=== PATIENT | male | born 1965 | race Hispanic/Latino ===

== ENCOUNTER 2017-05-08 02:47 | Observation (INO) | payer BC ==
--- NOTE | 2017-05-08 03:10 | ED PDOC ---
Arrival/HPI - General Chief Complaint: Chest Pain Time Seen by Provider: 05/08/17 02:48 Historian: Patient - History of Present Illness Narrative History of Present Illness (Text): 05/08/17 03:07 51 year old male, whose past medical history includes hypertension and prediabetes, presents to the emergency department complaining of chest pain associated with shortness of breath. Patient describes the chest pain as a burning sensation. Patient reports nausea and headache, but denies any fever, chills,vomiting, diarrhea, urinary symptoms, back pain, neck pain, headache, dizziness, or any other complaints. PMD: Dr. Germain 05/08/17 04:26 Time/Duration: Other (several days) Symptom Onset: Gradual Symptom Course: Unchanged Quality: Burning Activities at Onset: Light Context: Home Past Medical History - Provider Review Nursing Documentation Reviewed: Yes - Infectious Disease Hx of Infectious Diseases: None - Cardiac Hx Hypertension: Yes Other/Comment: Chest pain - Pulmonary Hx Respiratory Disorders: No - Neurological Hx Dizziness: Yes - HEENT Hx HEENT Disorder: No - Renal Hx Renal Disorder: No - Endocrine/Metabolic Hx Endocrine Disorders: No - Hematological/Oncological Hx Blood Disorders: No - Integumentary Hx Dermatological Disorder: No - Musculoskeletal/Rheumatological Hx Musculoskeletal Disorders: No Hx Falls: No - Gastrointestinal Hx Gastroesophageal Reflux: Yes - Genitourinary/Gynecological Hx Genitourinary Disorders: No - Psychiatric Hx Psychophysiologic Disorder: No Hx Substance Use: No - Surgical History Hx Cardiac Catheterization: Yes (4yrs ago halle) Other/Comment: Cardiac cath - Anesthesia Hx Anesthesia: Yes Hx Anesthesia Reactions: No Family/Social History - Physician Review Nursing Documentation Reviewed: Yes Family/Social History: No Known Family HX Smoking Status: Never Smoked Hx Alcohol Use: No Hx Substance Use: No Allergies/Home Meds Allergies/Adverse Reactions: Allergies No Known Allergies Allergy (Verified 08/24/15 19:32) Home Medications: Home Meds Medication Instructions Recorded Confirmed Aspirin [Adult Low Dose Aspirin EC] 81 mg PO DAILY 05/08/17 05/08/17 Cyanocobalamin/Folic AC/Vit B6 1 tab PO DAILY 05/08/17 05/08/17 [Folplex 2.2 Tablet] Yyrwe-5-Nxhf Ethyl Esters [OMEGA 3] 100 mg PO BID 05/08/17 05/08/17 Omeprazole 40 mg PO DAILY 05/08/17 05/08/17 Valsartan/Hydrochlorothiazide 1 tab PO DAILY 05/08/17 05/08/17 [Valsartan-Hctz 320-25 mg Tab] Review of Systems - Physician Review All systems were reviewed & negative as marked: Yes - Review of Systems Constitutional: absent: Fevers, Other (Chills) Respiratory: SOB Cardiovascular: Chest Pain Gastrointestinal: Nausea. absent: Diarrhea, Vomiting Musculoskeletal: absent: Back Pain, Neck Pain Neurological: Headache. absent: Dizziness Physical Exam Vital Signs Reviewed: Yes Vital Signs Temp Pulse Resp BP Pulse Ox 05/08/17 02:57 97.5 F L 78 18 130/81 100 Temperature: Afebrile Blood Pressure: Normal Pulse: Regular Respiratory Rate: Normal Appearance: Positive for: Well-Appearing, Non-Toxic, Comfortable, Other ( Morbidly obese) Pain Distress: None Mental Status: Positive for: Alert and Oriented X 3 - Systems Exam Head: Present: Atraumatic, Normocephalic Pupils: Present: PERRL Extroacular Muscles: Present: EOMI Conjunctiva: Present: Normal Mouth: Present: Moist Mucous Membranes Neck: Present: Normal Range of Motion Respiratory/Chest: Present: Clear to Auscultation, Good Air Exchange. No: Respiratory Distress, Accessory Muscle Use Cardiovascular: Present: Regular Rate and Rhythm, Normal S1, S2. No: Murmurs Abdomen: Present: Normal Bowel Sounds. No: Tenderness, Distention, Peritoneal Signs Back: Present: Normal Inspection Upper Extremity: Present: Normal Inspection. No: Cyanosis, Edema Lower Extremity: Present: Normal Inspection. No: Edema Neurological: Present: GCS=15, CN II-XII Intact, Speech Normal Skin: Present: Warm, Dry, Normal Color. No: Rashes Psychiatric: Present: Alert, Oriented x 3, Normal Insight, Normal Concentration Medical Decision Making ED Course and Treatment: 05/08/17 03:07 Impression: 51 year old male presents complaining of chest pain and sob for the past few days. Plan: -- EKG -- Labs -- Urinalysis -- Chest X-ray -- Reassess and disposition Prior Visits: Notes and results from previous visits were reviewed. Patient was last seen in the emergency department on 08/24/15 presents complaining of intermittent exertional chest pain and dyspnea on exertion for the past few months. Patient was admitted. Progress Notes: EKG shows NSR at 80 BPM with non-specific ST/T changes. Interpreted by me. 05/08/17 03:27 CXR Impression: As read by [email or web address]. 05/08/17 03:54 On re-evaluation, patient feels better and is in no acute distress. 05/08/17 04:05 All symptoms has resolved. Patient reports he took aspirin upon arrival. 05/08/17 04:[address] Germain who is aware and agrees with the plan. Dr. Germain accepts patient. 05/08/17 04:26 atypcial pain but pain <4 hours will need repeat trop. noted neg recent stress - Lab Interpretations Lab Results: 05/08/17 03:00 05/08/17 03:00 Lab Results 05/08/17 03:00: Sodium 140, Potassium 3.8, Chloride 100, Carbon Dioxide 28, Anion Gap 16, BUN 18, Creatinine 1.2, Est GFR ( Amer) > 60, Est GFR (Non- Af Amer) > 60, Random Glucose 111 H, Calcium 9.5, Magnesium 1.8, Total Bilirubin 0.5, AST 38, ALT 69 H, Alkaline Phosphatase 77, Lactate Dehydrogenase 391, Total Creatine Kinase 375 H, CK-MB (CK-2) 3.3, CK-MB (CK-2) % Cancelled, Troponin I < 0.01, NT-Pro-B Natriuret Pep 39.5, Total Protein 6.7, Albumin 3.9, Globulin 2.8, Albumin/Globulin Ratio 1.4 05/08/17 03:00: PT 11.2, INR 1.03, APTT 28.2, D-Dimer, Quantitative 232 05/08/17 03:00: WBC 5.3, RBC 4.79, Hgb 13.7 L, Hct 40.9 L, MCV 85.4, MCH 28.6, MCHC 33.5, RDW 13.9, Plt Count 174, MPV 9.3, Gran % 43.1 L, Lymph % (Auto) 46.9 H, [place] % (Auto) 6.0, Eos % (Auto) 3.8, Baso % (Auto) 0.2, Gran # 2.28, Lymph # 2.5, [place] # 0.3, Eos # 0.2, Baso # 0.01 I have reviewed the lab results: Yes - RAD Interpretation Radiology Orders: 05/08/17 03:07 CHEST PORTABLE [RAD] Stat - EKG Interpretation Interpreted by ED Physician: Yes Type: 12 lead EKG - Medication Orders Current Medication Orders: Discontinued Medications Aspirin (Ecotrin) 81 mg PO DAILY [facility] Last Admin: 05/08/17 10:34 Dose: 81 mg Hydrochlorothiazide (Hydrodiuril) 25 mg PO DAILY [facility] Last Admin: 05/08/17 10:34 Dose: 25 mg Multivitamins (Thera Tab) 1 tab PO DAILY [facility] Last Admin: 05/08/17 10:34 Dose: 1 tab Non-Formulary Medication (Dqdgu-0-Vghk Ethyl Esters [[place] 3]) 100 mg PO BID [facility] Pantoprazole Sodium (Protonix Ec Tab) 40 mg PO 0600 [facility] Last Admin: 05/08/17 10:34 Dose: 40 mg Potassium Chloride (K-Dur 20 Meq Er Tab) 40 meq PO ONCE ONE Stop: 05/08/17 10:00 Last Admin: 05/08/17 10:34 Dose: 40 meq Valsartan (Diovan) 320 mg PO DAILY [facility] Last Admin: 05/08/17 10:34 Dose: 320 mg - Scribe Statement The provider has reviewed the documentation as recorded by the Edwina Chacon Provider Scribe Attestation: All medical record entries made by the Nellyibkamila were at my direction and personally dictated by me. I have reviewed the chart and agree that the record accurately reflects my personal performance of the history, physical exam, medical decision making, and the department course for this patient. I have also personally directed, reviewed, and agree with the discharge instructions and disposition. Disposition/Present on Arrival - Present on Arrival Any Indicators Present on Arrival: No History of DVT/PE: No History of Uncontrolled Diabetes: No Urinary Catheter: No History of Decub. Ulcer: No History Surgical Site Infection Following: None - Disposition Have Diagnosis and Disposition been Completed?: Yes Diagnosis: Chest pain Disposition: HOSPITALIZED Disposition Time: 04:00 Condition: STABLE
[2017-05-08 03:34] LABS: BASO # 0.01 K/mm3 (0.0-2.0); BASO % 0.2 % (0.0-3.0); EOS # 0.2 (0.0-0.7); EOS % 3.8 % (1.5-5.0); GRAN # 2.28 (1.4-6.5); GRAN % 43.1 % (50.0-68.0); HEMATOCRIT 40.9 % (42.0-52.0); LYMPH # 2.5 (1.2-3.4); LYMPH % 46.9 % (22.0-35.0); MEAN CELL VOLUME 85.4 fl (80.0-105.0); MEAN CORPUSCULAR HEMOGLOBIN 28.6 pg (25.0-35.0); MEAN CORPUSCULAR HGB CONC 33.5 g/dl (31.0-37.0); MEAN PLATELET VOLUME 9.3 fl (7.0-11.0); MONO # 0.3 (0.1-0.6); RED CELL DISTRIBUTION WIDTH 13.9 % (11.5-14.5); WHITE BLOOD COUNT 5.3 10^3/ul (4.5-11.0)
[2017-05-08 03:43] LABS: ALB/GLOB RATIO 1.4 (1.1-1.8); ALKALINE PHOSPHATASE 77 U/L (38-126); ALT/SGPT 69 U/L (7-56); AST/SGOT 38 U/L (17-59); BILIRUBIN,TOTAL 0.5 mg/dL (0.2-1.3); BLOOD UREA NITROGEN 18 mg/dL (7-21); CALCIUM 9.5 mg/dL (8.4-10.5); CARBON DIOXIDE 28 mmol/L (21-33); CHLORIDE 100 mmol/L (98-107); GFR AFRICAN-AMERICAN > 60; GLUCOSE,RANDOM 111 mg/dL (70-110); MAGNESIUM 1.8 mg/dL (1.7-2.2); POTASSIUM 3.8 mmol/L (3.6-5.0); SODIUM 140 mmol/L (132-148); TOTAL PROTEIN 6.7 g/dL (5.8-8.3)
[2017-05-08 03:45] LABS: INR 1.03 (0.93-1.08); PARTIAL THROMBOPLASTIN TIME 28.2 Seconds (25.1-36.5)
[2017-05-08 03:54] LABS: TROPONIN I < 0.01 ng/mL
[2017-05-08 05:07] VITALS: BMI 47.9
--- NOTE | 2017-05-08 08:54 | CARD ---
APPROVED REPORT EKG Measurement Heart [id number] OK 140P3 [id number] <Conclusion> Normal sinus rhythm NSSTW changes
[2017-05-08 09:01] LABS: PH,URINE 5.5 (4.7-8.0); URINE BILIRUBIN NEGATIVE (NEGATIVE); URINE BLOOD NEGATIVE (NEGATIVE); URINE GLUCOSE (UA) NEGATIVE (NEGATIVE); URINE KETONE TRACE mg/dL (NEGATIVE); URINE LEUKOCYTE ESTERASE NEGATIVE Leu/uL (NEGATIVE); URINE PROTEIN NEGATIVE mg/dL (<30 mg/dL); URINE UROBILINOGEN 0.2 E.U./dL (<1 E.U./dL)
[2017-05-08 09:03] LABS: URINE APPEARANCE CLEAR (CLEAR); URINE COLOR YELLOW (YELLOW)
[2017-05-08] MEDS ORDERED: Potassium Chloride 20 mEq ER Tab PO ONE (09:59)
[2017-05-08] MEDS ORDERED: CYANOCOBALAMIN PO SCH (10:00)
[2017-05-08] MEDS ORDERED: Non Formulary Medication (Valsartan/Hydrochlorothiazide [Valsartan-Hctz 320-25 Mg Tab] 1 T PO SCH (10:00)
[2017-05-08] MEDS ORDERED: Multivitamin Therapeutic Tab PO SCH (10:00)
[2017-05-08] MEDS ORDERED: OMEGA 3 ACID ETHYL ESTERS PO SCH (10:00)
[2017-05-08] MEDS ORDERED: Pantoprazole 40 mg EC Tab PO SCH (10:00)
[2017-05-08] MEDS ORDERED: FOLIC AC PO SCH (10:00)
[2017-05-08] MEDS ORDERED: VIT B6 PO SCH (10:00)
[2017-05-08] MEDS ORDERED: Non Formulary Medication (Omeprazole [Omeprazole] 40 MG) PO SCH (10:00)
[2017-05-08 10:46] LABS: CHOLESTEROL 197 mg/dL (130-200)
--- NOTE | 2017-05-08 11:02 | RAD ---
HISTORY: Chest pain. Portable study 03:15. COMPARISON: 08/24/2015 FINDINGS: LUNGS: No active pulmonary disease. PLEURA: No significant pleural effusion identified, no pneumothorax apparent. CARDIOVASCULAR: No radiographic findings to suggest acute or significant cardiovascular disease. OSSEOUS STRUCTURES: No significant abnormalities. VISUALIZED UPPER ABDOMEN: Normal. OTHER FINDINGS: None. IMPRESSION: No active disease. No significant interval change compared to the prior examination(s).
[2017-05-08 12:07] VITALS: O2SAT 97
[2017-05-08 12:13] VITALS: BP 140/94; PULSE 79; RESP 20; TEMP 97.6
--- NOTE | 2017-05-08 22:21 | CON ---
DATE: 05/08/2017 CONSULT SERVICE: Cardiology. REASON FOR CONSULTATION: Cardiac evaluation and chest pain. BRIEF CLINICAL HISTORY: A 51-year-old male with past medical history significant for hypertension, prediabetic, morbid obesity, obstructive sleep apnea, on CPAP at home, recently seen Dr. Argueta and scheduled stress test, who came in with burning sensation pin and prick in the left shoulder region, chest pain, and then pin and prick in the left arm, so the patient came to the emergency room. Denies any chest pain or dyspnea on exertion recently or unchanged character from before. PAST MEDICAL HISTORY: Significant for morbid obesity, prediabetic, hypertension, obstructive sleep apnea, on CPAP at home, seen by Dr. Angel and follow up with Dr. Angel. CURRENT MEDICATIONS: The patient has been taking at home valsartan/hydrochlorothiazide combination 325/25 daily, vitamin B12, cyanocobalamin, B6, omega-3, and baby aspirin everyday as well as omeprazole. REVIEW OF SYSTEMS: As per HPI. PHYSICAL EXAMINATION: VITAL SIGNS: Height of the patient 5 feet 9 inches, weight of the patient 325 pounds, and body mass index of 48 kg/m2. Temperature afebrile, heart rate 78, and blood pressure 138/80. HEENT: PERRLA. Extraocular muscles intact. NECK: Supple. No carotid bruits or thyromegaly. CHEST: Clear to auscultation. HEART: S1 and S2 regular. ABDOMEN: Soft. EXTREMITIES: Clubbing and cyanosis negative. LABORATORY DATA: EKG shows normal sinus, RSR pattern. Heart rate of 80. Blood workup as follows: WBC 5.3, hemoglobin 13.3, hematocrit 50.9, and platelet count 174. Chemistry shows sodium 140, potassium 3.8, chloride 100, carbon dioxide 28, anion gap of 16, BUN 18, and creatinine 1.2. Troponin 0.01 and 0.01 twice. IMPRESSION AND PLAN: Atypical chest pain. No evidence of myocardial infarction. Troponin x2 negative. The patient complained with a soft pin and prick. Recently seen by Dr. Argueta. Scheduled a stress test for this week. Offered to the patient that if he stays, we will schedule stress test tomorrow because of underlying comorbidity and multiple risk factors including morbid obesity, diabetes, hypertension, and sleep apnea, but the patient prefers to go home today and wanted to be discharged and come as an outpatient for stress test, so nurse is taking care of the patient. Marisol informed about the patient's wishes, which she already knew it. Since the patient has no evidence of acute coronary syndrome, no evidence of acute myocardial infarction, we will schedule as an outpatient, but if the patient is to stay, we will keep n.p.o. and schedule a stress test tomorrow. Discussed with the patient at length, but the patient wanted to go home. We will also had hemoglobin, lipid profile, and TSH for the 2 days blood drawn in the morning. We will also supplement potassium 40 because the patient has a low potassium, he is taking hydrochlorothiazide and valsartan. Should the patient stay for reason, we will schedule a stress test tomorrow. We will follow with you. Thank you Dr. Germain for providing us the opportunity in taking care of the patient, Josue Carr. Chiara Maria MD
== END 2017-05-08 13:13 | disposition home or self-care (01) ==
LOC: ED 02:47 → ERH 04:10 → 2RSO 05:03
PROVIDERS: ADMIT Internal Medicine; ATTEND Internal Medicine
DX: R07.89 Other chest pain (principal); E66.01 Morbid (severe) obesity due to excess calories; E11.9 Type 2 diabetes mellitus without complications; I10 Essential (primary) hypertension; G47.33 Obstructive sleep apnea (adult) (pediatric); K21.9 Gastro-esophageal reflux disease without esophagitis; Z79.82 Long term (current) use of aspirin; Z79.899 Other long term (current) drug therapy; R40.2412 Glasgow coma scale score 13-15, at arrival to emergency department
CPT/HCPCS: 71010; 80053; 80061; 81003; 82550; 82553; 83036; 83615; 83735; 83880; 84443; 84484; 85025; 85378; 85610; 85730; 93005; 99285; G0378

== ENCOUNTER 2018-05-07 23:45 | Emergency (ER) | payer BC ==
[2018-05-07 23:48] VITALS: BMI 33.2
[2018-05-08 00:19] VITALS: TEMP 98.4
--- NOTE | 2018-05-08 00:35 | ED PDOC ---
Arrival/HPI - General Chief Complaint: Chest Pain Time Seen by Provider: 05/07/18 23:54 Historian: Patient - History of Present Illness Narrative History of Present Illness (Text): 05/08/18 00:30 52 year old male with pmhx of hypertension and GERD presents to the ED with shortness of breath and midsternal chest pain, and left arm pain that began 3-4 hours ago. Patient reports he was asleep when the pain occurred and reports he took a baby aspirin. Patient states he experience similar symptoms in the past. Patient notes he played football 2 days ago and might have overworked his body. Patient is not a smoker. Patient denies any fever, chills, chest pain at this time, nausea, vomiting, diarrhea, urinary symptoms, back pain, neck pain, headache, dizziness, or any other complaints. PMD: Dr. Germain Time/Duration: Other (3-4 hours) Symptom Onset: Sudden Symptom Course: Improving Activities at Onset: Sleeping Context: Home Past Medical History - Provider Review Nursing Documentation Reviewed: Yes - Infectious Disease Hx of Infectious Diseases: None - Cardiac Hx Hypertension: Yes - Pulmonary Hx Respiratory Disorders: No - Neurological Hx Dizziness: Yes - HEENT Hx HEENT Disorder: No - Renal Hx Renal Disorder: No - Endocrine/Metabolic Hx Endocrine Disorders: No - Hematological/Oncological Hx Blood Disorders: No - Integumentary Hx Dermatological Disorder: No - Musculoskeletal/Rheumatological Hx Musculoskeletal Disorders: No Hx Falls: No - Gastrointestinal Hx Gastroesophageal Reflux: Yes Other/Comment: gastric sleeve 09/2017 - Genitourinary/Gynecological Hx Genitourinary Disorders: No - Psychiatric Hx Psychophysiologic Disorder: No Hx Substance Use: No - Surgical History Hx Cardiac Catheterization: Yes (4yrs ago halle) Other/Comment: Cardiac cath - Anesthesia Hx Anesthesia: Yes Hx Anesthesia Reactions: No Family/Social History - Physician Review Nursing Documentation Reviewed: Yes Family/Social History: No Known Family HX. denies: CAD/AL Smoking Status: Never Smoked Hx Alcohol Use: No Hx Substance Use: No Allergies/Home Meds Allergies/Adverse Reactions: Allergies No Known Allergies Allergy (Verified 05/07/18 23:51) Home Medications: Home Meds Medication Instructions Recorded Confirmed Aspirin [Adult Low Dose Aspirin EC] 81 mg PO DAILY 05/08/17 05/07/18 Review of Systems - Physician Review All systems were reviewed & negative as marked: Yes - Review of Systems Constitutional: absent: Fevers, Other (Chills) Respiratory: SOB Cardiovascular: Chest Pain Gastrointestinal: absent: Diarrhea, Nausea, Vomiting Genitourinary Male: absent: Dysuria, Frequency, Hematuria Musculoskeletal: Other (left arm pain). absent: Back Pain, Neck Pain Neurological: absent: Headache, Dizziness Physical Exam - Physical Exam Narrative Physical Exam (Text): Gen: VS reviewed, alert, well developed, well nourished, nontoxic, mild distress. ENT: normal pharynx. Eye: EOMI, PERRL. Neck: no JVD, supple, no adenopathy. CV: regular rate, regular rhythm, no rubs, no murmur, no gallops, S1, S2, pulses equal and strong. Pulm: no distress, clear to auscultation, no wheeze, no rhonchi, breath sounds equal, no rales. Abd: soft, nontender, no guarding, no rebound, no rigidity, normal bowel sounds. Ext: no edema. Skin: good color, no rash, no cyanosis. Psych: responds appropriately to questions, normal affect. Neuro: oriented x 3, CN2-12 intact grossly, motor intact, sensation intact. Vital Signs Reviewed: Yes Vital Signs Temp Pulse Resp BP Pulse Ox 05/07/18 23:45 98.4 F 74 18 142/87 95 Temperature: Afebrile Blood Pressure: Normal Pulse: Regular Respiratory Rate: Normal Medical Decision Making ED Course and Treatment: 05/08/18 00:30 Impression: 52 year old male presents complaining of shortness of breath, midsternal chest pain, and left arm pain that began 3-4 hours ago. Plan: -- EKG -- Labs -- Chest X-ray -- Reassess and disposition Prior Visits: Notes and results from previous visits were reviewed. Progress Notes: - Lab Interpretations I have reviewed the lab results: Yes - RAD Interpretation Radiology Orders: 05/08/18 00:26 CHEST PORTABLE [RAD] Stat Collaborative Teacher: ED Physician - EKG Interpretation EKG Interpretation (Text): 05/08/18 ekg my read: 2352: nsr at 71 bpm, nml qrs, nml axis, irbbb, no acute sttw abn Interpreted by ED Physician: Yes Type: 12 lead EKG - Scribe Statement The provider has reviewed the documentation as recorded by the Edwina Chacon Provider Scribe Attestation: All medical record entries made by the Nellyibe were at my direction and personally dictated by me. I have reviewed the chart and agree that the record accurately reflects my personal performance of the history, physical exam, medical decision making, and the department course for this patient. I have also personally directed, reviewed, and agree with the discharge instructions and disposition. Disposition/Present on Arrival - Present on Arrival Any Indicators Present on Arrival: No History of DVT/PE: No History of Uncontrolled Diabetes: No Urinary Catheter: No History of Decub. Ulcer: No History Surgical Site Infection Following: None - Disposition Have Diagnosis and Disposition been Completed?: Yes Diagnosis: Chest pain Disposition: HOME/ ROUTINE Disposition Time: 04:14 Patient Plan: Discharge Condition: STABLE Discharge Instructions (ExitCare): Chest Pain (ED), Chest Pain Additional Instructions: REturn for any new or worsening symptoms. Follow up with a community liaison officer as soon as possible for further evaluation which may include a stress test. CASEY FELICIANO, thank you for letting us take care of you today. Your provider was Dr.Lamont De Los Santos and you were treated for chest pain. The emergency medical care you received today was directed at your acute symptoms. If you were prescribed any medication, please fill it and take as directed. It may take several days for your symptoms to resolve. Return to the Emergency Department if your symptoms worsen, do not improve, or if you have any other problems. Please contact your doctor or call one of the physicians/clinics you have been referred to that are listed on the Patient Visit Information form that is included in your discharge packet. Bring any paperwork you were given at discharge with you along with any medications you are taking to your follow up visit. Our treatment cannot replace ongoing medical care by a primary care provider outside of the emergency department. Thank you for allowing the [facility] team to be part of your care today. If you had an X-Ray or CT scan: A Radiologist will review the ED reading if any change in treatment is needed we will contact you. If you had a blood, urine, or wound culture: It will take several days for the results, if any change in treatment is needed we will contact you. If you had an STI test: It will take 48 hours for the results. Please call after 1 week if you have not heard back. Referrals: Rocio Germain MD [Primary Care Provider] - Follow up with primary [facility] [Outside] - Follow up with primary Chiara Argueta MD [Staff Provider] - Follow up with primary Forms: [employer] (Slovak)
[2018-05-08 00:45] LABS: BASO # 0.02 K/mm3 (0.0-2.0); BASO % 0.3 % (0.0-3.0); EOS # 0.2 (0.0-0.7); EOS % 2.7 % (1.5-5.0); GRAN # 3.38 (1.4-6.5); GRAN % 47.1 % (50.0-68.0); HEMOGLOBIN 14.2 g/dL (14.0-18.0); LYMPH % 42.5 % (22.0-35.0); MEAN CORPUSCULAR HEMOGLOBIN 29.3 pg (25.0-35.0); MEAN CORPUSCULAR HGB CONC 34.1 g/dl (31.0-37.0); MEAN PLATELET VOLUME 9.3 fl (7.0-11.0); MONO # 0.5 (0.1-0.6); MONO % 7.4 % (1.0-6.0); RBC 4.84 10^6/uL (3.5-6.1); RED CELL DISTRIBUTION WIDTH 13.3 % (11.5-14.5); WHITE BLOOD COUNT 7.2 10^3/uL (4.5-11.0)
[2018-05-08 00:58] LABS: ALB/GLOB RATIO 1.5 (1.1-1.8); ALBUMIN 4.4 g/dL (3.0-4.8); ALT/SGPT 24 U/L (7-56); AST/SGOT 23 U/L (17-59); BLOOD UREA NITROGEN 16 mg/dL (7-21); CALCIUM 9.2 mg/dL (8.4-10.5); GFR NON-AFRICAN AMERICAN > 60; HDL CHOLESTEROL 46 mg/dL (29-60); INR 1.04; PROTHROMBIN TIME 11.9 SECONDS (9.4-12.5)
[2018-05-08 01:00] LABS: D DIMER < 200 ng/mlDDU (0-243)
[2018-05-08 01:08] LABS: LDL CHOLESTEROL 48 mg/dL (0-129)
[2018-05-08 01:11] LABS: TROPONIN I < 0.01 ng/mL
[2018-05-08 04:43] VITALS: BP 127/78; PULSE 75; RESP 16; O2SAT 100
--- NOTE | 2018-05-08 09:57 | RAD ---
Date of service: 05/08/2018 HISTORY: chest pain COMPARISON: 09/16/2017 FINDINGS: LUNGS: No active pulmonary disease. PLEURA: No significant pleural effusion identified, no pneumothorax apparent. CARDIOVASCULAR: No atherosclerotic calcification present Normal. OSSEOUS STRUCTURES: No significant abnormalities. VISUALIZED UPPER ABDOMEN: Normal. OTHER FINDINGS: None. IMPRESSION: No active disease. No significant interval change compared to the prior examination(s).
--- NOTE | 2018-05-08 18:47 | CARD ---
APPROVED REPORT Date of service: 05/07/2018 EKG Measurement Heart [id number] <Conclusion> Normal sinus rhythm Incomplete right bundle branch block Possible Inferior infarct, age undetermined Abnormal ECG
== END 2018-05-08 04:23 | disposition home or self-care (01) ==
LOC: ED 23:45
DX: R07.9 Chest pain, unspecified (principal); I10 Essential (primary) hypertension; K21.9 Gastro-esophageal reflux disease without esophagitis